=== PATIENT | male | born 1955 | race Two or more races ===

== ENCOUNTER 2021-04-11 10:09 | Emergency (ER) | payer OTHER ==
[~2021-04-11] VITALS: Ht 182.9 cm; Wt 64.9 kg
[2021-04-11 11:38] VITALS: BP 123/78
[2021-04-11] MEDS ORDERED: KETOROLAC TROMETH 60MG/2ML VIAL IM ONE (12:30)
== END 2021-04-11 12:51 | disposition home or self-care (01) ==
LOC: ER 10:09
DX: M24.9 Joint derangement, unspecified (principal); M19.011 Primary osteoarthritis, right shoulder; I10 Essential (primary) hypertension
CPT/HCPCS: 73030; 93005; 96372; 99283; J1885